=== PATIENT | female | born 1960 | race Caucasian/White ===

== ENCOUNTER 2016-10-13 12:02 | Day surgery (SDC) | payer MEDICARE, OTHER ==
[2016-10-13 12:16] LABS: BASO % 0.7 % (0-6); EOS % 1.1 % (0-6); GRAN % 68.6 % (47-80); HEMATOCRIT 46.2 % (35.0-47.0); HEMOGLOBIN 15.2 gm/dl (11.6-16.0); MEAN CELL VOLUME 90.8 fl (81-97); MEAN CORPUSCULAR HEMOGLOBIN 29.9 pg (27-33); MEAN CORPUSCULAR HGB CONC 32.9 g/dl (32-36); MEAN PLATELET VOLUME 11.3 fl (7.4-10.4); MONO % 5.6 % (0-9); PLATELET COUNT 262 K/uL (130-400); RED BLOOD COUNT 5.09 M/uL (3.80-5.40); RED CELL DISTRIBUTION WIDTH 14.5 % (11.5-14.5); WHITE BLOOD COUNT W/O DIFF 8.4 K/uL (4.2-12.2)
[2016-10-13 12:33] LABS: ALB/GLOB RATIO 1.4 (1.1-1.8); ALBUMIN 4.6 gm/dL (3.5-5.0); BILIRUBIN,TOTAL 0.56 mg/dL (0.2-1.3); CREATININE 1.3 mg/dL (0.52-1.04)
[2016-10-13] MEDS ORDERED: PROPOFOL 10 MG/ML VIAL IV ONE (14:00)
--- NOTE | 2016-10-14 14:51 | Operative Note ---
DATE OF PROCEDURE: 10/13/16 CLOTH SPONGER: XIOMY MIRANDA M.D. HISTORY: Ms. Yoder is 56 years old, undergoing elective cardioversion for paroxysmal atrial fibrillation. She has been placed on Amiodarone 200 mg daily for the past several weeks and has been on Xarelto. PROCEDURE: After informed consent, the patient was brought to the surgical room. She was given conscious sedation by Anesthesia at the bedside via Propofol. The patient had defibrillator pads placed in the anterior/posterior position. 200 joules biphasic countershock x1 was performed with successful conversion of atrial fibrillation to sinus rhythm. The patient tolerated the procedure well and was discharged for outpatient follow-up. She will continue her current medical regimen. FINAL IMPRESSION: SUCCESSFUL CARDIOVERSION OF A-FIB TO SINUS RHYTHM USING 200 JOULES BIPHASIC SYNCHRONIZED COUNTERSHOCK X1. JOB: [id number] MTDD
== END 2016-10-13 14:02 | disposition home or self-care (01) ==
LOC: SUR 12:02
PROVIDERS: ATTEND Internal Medicine Cardiovascular Disease
DX: I48.0 Paroxysmal atrial fibrillation (principal); J44.9 Chronic obstructive pulmonary disease, unspecified
CPT/HCPCS: 80053; 85025; 93005